=== PATIENT | male | born 1990 | race Caucasian/White ===

== ENCOUNTER 2021-01-29 21:11 | Observation (INO) | payer BC ==
[2021-01-29] MEDS ORDERED: Sodium Chloride 0.9% 10 ML Syringe FLUSH PRN (21:28)
--- NOTE | 2021-01-29 21:28 | EDM.PDOC ---
ED HPI GENERAL MEDICAL PROBLEM - General Chief Complaint: General Stated Complaint: fast heart rate Time Seen by Provider: 01/29/21 21:23 Source of Information: Reports: Patient History Limitations: Reports: No Limitations - History of Present Illness INITIAL COMMENTS - FREE TEXT/NARRATIVE: 30-year-old male who reports beginning on Wednesday or of last week, he developed malaise, nasal congestion, cough and just not feeling well. He sort of "power through it" but he did notice that his heart rate was somewhat elevated in the 110 range and his blood pressure was a at that point. He has been having twinges of pain in his chest that he really didn't describe as a pain but as a slight discomfort that he would rated as 3/10 and it seemed to come and go lasting for no longer than 5 minutes at a time. It didn't radiate and it did not seem to be brought on by anything nor whether any exacerbating or alleviating factors with this. He had no headache. There was no nausea or vomiting. He did feel somewhat short of breath with activity and he felt very fatigued and he noted that his heart rate would increase when he did activity and his blood pressure seemed to increase as well. He continued with the nasal congestion and was seen by the doctors at [facility] on 01/27/2021 and was diagnosed with a sinus infection and was placed on Augmentin for this. He also was advised to take plain Robitussin and he tells me that that is really the only over the counter medication that he has been taking. He has taken no decongestants or [id number] cold type preparations. He reports he has been drinking normally and eating normally. He has been vaccinated against Covid with all 3 shots of the Moderna. He tells me that his heart rate is usually in the 60s to 7 0s but it has consistently been in the 110 range since last week. Today, his blood pressure elevated to the 170 systolic range and that associated with his increased heart rate, his malaise and the vague sort of chest discomfort caused him to come to the emergency department for evaluation. There are no other associated signs or symptoms. There are no other modifying factors. He did have blood work that was done about a month ago that was all normal according the patient area in addition he had his blood pressure medications changed in that he had his losartan changed to Hyzaar 100/25. He does report that he has been taking his medications for his blood pressure and other problems as directed. Onset: Other (6-7 days ago) Duration: Constant (But did seem to worsen today with increased blood pressure.) Location: Reports: Chest Quality: Reports: Other ([place]. 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.) - Related Data Allergies Allergy/AdvReac Type Severity Reaction Status Date / Time No Known Allergies Allergy Verified 01/29/21 21:19 Home Meds: Home Meds Amoxicillin 875 mg PO DAILY 01/29/21 [History] Losartan/Hydrochlorothiazide [Losartan-HCTZ 100-25 MG] 100 mg PO DAILY 01/29/21 [History] amLODIPine [Norvasc] 5 mg PO DAILY 01/29/21 [History] atorvaSTATin Calcium [Lipitor] 40 mg PO DAILY 01/29/21 [History] metFORMIN [Glucophage] 500 mg PO DAILY 01/29/21 [History] Past Medical History Cardiovascular History: Reports: High Cholesterol, Hypertension Endocrine/Metabolic History: Reports: Diabetes, Type II (On metformin. Hemoglobin A1c's have been in the 5.4 range.), Obesity/BMI 30+ - Past Surgical History HEENT Surgical History: Reports: Oral Surgery ([place] teeth extraction) Neurological Surgical History: Reports: C-Spine, Discectomy (Laparoscopic posterior cervical discectomy) Social & Family History - Tobacco Use Tobacco Use Status *Q: Unknown Ever Used Tobacco (Nonsmoker.) - Alcohol Use Alcohol Use History: Yes Alcohol Use Frequency: Socially (Maybe once a month.) - Living Situation & Occupation Occupation: Employed (Works in sales) ED ROS GENERAL - Review of Systems Review Of Systems: See Below Constitutional: Reports: Malaise, Fatigue. Denies: Fever, Chills HEENT: Reports: Other (Nasal congestion.). Denies: Ear Pain, Throat Pain Respiratory: Reports: Cough. Denies: Shortness of Breath Cardiovascular: Reports: Chest Pain (As per history of present illness.), Dyspnea on Exertion, Palpitations Endocrine: Reports: Fatigue GI/Abdominal: Denies: Abdominal Pain, Nausea, Vomiting : Denies: Dysuria, Hematuria Musculoskeletal: Denies: Arm Pain, Back Pain Skin: Reports: Diaphoresis (Sweats off and on.). Denies: Rash Neurological: Denies: Dizziness, Headache Psychiatric: Reports: Anxiety Hematologic/Lymphatic: Denies: Easy Bleeding, Easy Bruising Immunologic: Reports: Other (Patient has had all 3 Moderna Covid vaccinations.) ED EXAM, GENERAL - Physical Exam Exam: See Below Exam Limited By: No Limitations General Appearance: Alert, Mild Distress, Obese, Other (Nontoxic. No respiratory distress.) Eye Exam: Bilateral Eye: EOMI, Normal Inspection (Sclera are anicteric), PERRL Ears: Normal External Exam, Hearing Grossly Normal Ear Exam: Bilateral Ear: Auricle Normal Nose: Normal Inspection, Normal Mucosa, No Blood Throat/Mouth: Normal Inspection, Normal Oropharynx, Normal Voice, No Airway Compromise Head: Atraumatic, Normocephalic Neck: Normal Inspection, Supple, Non-Tender, Full Range of Motion Respiratory/Chest: No Respiratory Distress, Lungs Clear, Normal Breath Sounds, No Accessory Muscle Use, Chest Non-Tender Cardiovascular: Normal Peripheral Pulses, Regular Rate, Rhythm, No Edema, No Murmur Peripheral Pulses: 2+: Radial (L), Radial (R), Dorsalis Pedis (L), Dorsalis Pedis (R) GI/Abdominal: Normal Bowel Sounds, Soft, Non-Tender, No Mass Back Exam: Normal Inspection Extremities: Normal Inspection, Normal Range of Motion, Non-Tender, No Pedal Edema, Normal Capillary Refill Neurological: Alert, Oriented, CN II-XII Intact, Normal Cognition, No Motor/Sensory Deficits Psychiatric: Anxious Skin Exam: Warm, Dry, Intact, Normal Color, No Rash #1 Interpretation EKG Date: 01/29/21 Time: 21:44 Rhythm: Other (Sinus tachycardia) Rate (Beats/Min): 117 [place]: Normal P-Wave: Present QRS: Normal ST-T: Other (Nonspecific T-wave abnormalities.) QT: Normal Comparison: NA - No Prior EKG Course - Vital Signs Last Recorded V/S: Last Vital Signs Temp 36.6 C 01/29/21 21:15 Pulse 93 01/29/21 23:46 Resp 17 01/29/21 23:46 BP 156/95 H 01/29/21 23:55 Pulse Ox 94 L 01/29/21 23:46 - Orders/Labs/Meds Orders: Active Orders 24 hr Category Date Time Status Patient Status Manage Transfer [TRANSFER] Routine ADT 01/30/21 00:02 Active Patient Status [ADT] Routine ADT 01/29/21 23:51 Active Blood Glucose Check, Bedside [RC] QIDACANDBED Care 01/29/21 23:51 Active Cardiac Monitoring [RC] CONTINUOUS Care 01/29/21 23:53 Active Height and Weight [RC] UPON Care 01/29/21 23:51 Active Intake and Output [RC] QSHIFT Care 01/29/21 23:53 Active Oxygen Therapy [RC] PRN Care 01/29/21 23:51 Active Pulse Oximetry [RC] PRN Care 01/29/21 23:53 Active Up ad Sherley [RC] ASDIRECTED Care 01/29/21 23:51 Active VTE/DVT Education [RC] Per Unit Routine Care 01/29/21 23:51 Active Vital Signs [RC] Q4H Care 01/29/21 23:51 Active Heart Healthy Diet [DIET] Diet 01/29/21 Dinner Active Chest 1V Frontal [CR] Stat Exams 01/29/21 21:28 Taken BASIC METABOLIC PANEL,BMP [CHEM] AM Lab 01/30/21 05:11 Ordered CBC WITH AUTO DIFF [HEME] AM Lab 01/30/21 05:11 Ordered TROPONIN I [CHEM] AM Lab 01/30/21 05:11 Ordered Acetaminophen [TylenoL] Med 01/29/21 23:51 Active 975 mg PO Q6H PRN Enoxaparin [Lovenox] Med 01/30/21 00:15 Once 40 mg SUBCUT NOW ONE Enoxaparin [Lovenox] Med 01/30/21 21:00 Active 40 mg SUBCUT Q24H Hydrochlorothiazide/Losartan [Hyzaar 100-12.5 MG] Med 01/30/21 09:00 Pending 1 tab PO DAILY Ondansetron [Zofran] Med 01/29/21 23:51 Active 4 mg IV Q6H PRN Sodium Chloride 0.9% [Normal Saline] 1,000 ml Med 01/29/21 23:45 Active IV ASDIRECTED Sodium Chloride 0.9% [Saline Flush] Med 01/29/21 21:28 Active 10 ml FLUSH ASDIRECTED PRN amLODIPine [Norvasc] Med 01/30/21 09:00 Active 10 mg PO DAILY atorvaSTATin [Lipitor] Med 01/30/21 09:00 Pending 40 mg PO DAILY hydroCHLOROthiazide Med 01/30/21 09:00 Pending 12.5 mg PO DAILY metFORMIN [Glucophage] Med 01/30/21 09:00 Pending 500 mg PO DAILY Peripheral IV Insertion Adult [OM.PC] Routine Oth 01/29/21 21:28 Ordered Resuscitation Status Routine Resus Stat 01/29/21 23:51 Ordered EKG 12 Lead [EK] Routine Ther 01/29/21 21:30 Ordered EKG 12 Lead [EK] Routine Ther 01/30/21 07:00 Ordered Medication Orders Acetaminophen (Acetaminophen 325 Mg Tab) 975 mg PO Q6H PRN PRN Reason: Pain (Mild 1-3)/fever Amlodipine Besylate (Amlodipine 10 Mg Tab) 10 mg PO DAILY [facility] Atorvastatin Calcium (Atorvastatin 40 Mg Tab) 40 mg PO DAILY [facility] Enoxaparin Sodium (Enoxaparin 40 Mg/0.4 Ml Syringe) 40 mg SUBCUT Q24H [facility] Enoxaparin Sodium (Enoxaparin 40 Mg/0.4 Ml Syringe) 40 mg SUBCUT NOW ONE Stop: 01/30/21 00:16 HCTZ/Losartan Potassium (Hydrochlorothiazide/Losartan 12.5-100 Mg Tab) 1 tab PO DAILY [facility] Hydrochlorothiazide (Hydrochlorothiazide 12.5 Mg Cap) 12.5 mg PO DAILY [facility] Sodium Chloride (Normal Saline) 1,000 mls @ 100 mls/hr IV ASDIRECTED GEMMA Metformin HCl (Metformin 500 Mg Tab) 500 mg PO DAILY [facility] Ondansetron HCl (Ondansetron 4 Mg/2 Ml Sdv) 4 mg IV Q6H PRN PRN Reason: Nausea/Vomiting Sodium Chloride (Sodium Chloride 0.9% 10 Ml Syringe) 10 ml FLUSH ASDIRECTED PRN PRN Reason: Keep Vein Open Last Admin: 01/29/21 21:39 Dose: 10 ml Documented by: JAIME Labs: Laboratory Tests 01/29/21 01/29/21 01/29/21 Range/Units 21:35 21:35 21:35 WBC 9.6 (3.2-10.1) x10-3/uL RBC 5.29 (3.90-5.90) x10(6)uL Hgb 15.8 (12.9-17.7) g/dL Hct 45.2 (38.3-50.1) % MCV 85.6 (80.8-98.7) fL MCH 30.0 (27.0-33.3) pg MCHC 35.0 (28.7-35.3) g/dL RDW 12.8 (12.4-15.0) % Plt Count 257 (117-477) x10(3)uL MPV 7.2 (6.7-11.0) fL Neut % (Auto) 77.8 H (40.3-71.8) % Lymph % (Auto) 16.0 (15.8-45.3) % [place] % (Auto) 5.6 (5.5-15.2) % Eos % (Auto) 0.3 (0.1-6.8) % Baso % (Auto) 0.3 (0.3-3.8) % Neut # (Auto) 7.5 H (1.7-6.9) x10-3/uL Lymph # (Auto) 1.5 (0.5-4.5) x10-3/uL [place] # (Auto) 0.5 (0.0-1.2) x10-3/uL Eos # (Auto) 0.0 (0.0-0.6) x10-3/uL Baso # (Auto) 0.0 (0.0-0.3) x10-3/uL D-Dimer, Quantitative (0.0-0.59) mg/LFEU Sodium 136 (135-145) mmol/L Potassium 3.4 L (3.5-5.3) mmol/L Chloride 99 L (100-110) mmol/L Carbon Dioxide 26 (21-32) mmol/L BUN 16 (7-18) mg/dL Creatinine 1.2 (0.70-1.30) mg/dL Est Cr Clr Drug Dosing 85.50 mL/min Estimated GFR (MDRD) > 60 (>60) BUN/Creatinine Ratio 13.3 (9-20) Glucose 211 H (80-116) mg/dL POC Glucose (80-116) mg/dL Calcium 8.5 L (8.6-10.2) mg/dL Magnesium 2.0 (1.8-2.5) mg/dL Total Bilirubin 0.6 (0.1-1.3) mg/dL AST 29 H (5-25) IU/L ALT 97 H (12-36) U/L Alkaline Phosphatase 71 (56-112) IU/L Troponin I 7.4 (4.0-60.3) pg/mL NT-Pro-B Natriuret Pep 5 (<=125) pg/mL Total Protein 7.9 (6.0-8.0) g/dL Albumin 4.3 (3.5-5.2) g/dL Globulin 3.6 g/dL Albumin/Globulin Ratio 1.2 Urine Color (YELLOW) Urine Appearance (CLEAR) Urine pH (5.0-6.5) Ur Specific [place] (1.010-1.025) Urine Protein (NEGATIVE) mg/dL Urine Glucose (UA) (NORMAL) mg/dL Urine Ketones (NEGATIVE) mg/dL Urine Occult Blood (NEGATIVE) Urine Nitrite (NEGATIVE) Urine Bilirubin (NEGATIVE) Urine Urobilinogen (NEGATIVE) mg/dL Ur Leukocyte Esterase (NEGATIVE) Urine RBC (0-5) Urine WBC (0-5) Ur Squamous Epith Cells (NS,R,O) Urine Bacteria (NS) SARS-CoV-2 RNA (YARA) (NEGATIVE) 01/29/21 01/29/21 01/29/21 Range/Units 21:35 21:52 22:04 WBC (3.2-10.1) x10-3/uL RBC (3.90-5.90) x10(6)uL Hgb (12.9-17.7) g/dL Hct (38.3-50.1) % MCV (80.8-98.7) fL MCH (27.0-33.3) pg MCHC (28.7-35.3) g/dL RDW (12.4-15.0) % Plt Count (117-477) x10(3)uL MPV (6.7-11.0) fL Neut % (Auto) (40.3-71.8) % Lymph % (Auto) (15.8-45.3) % [place] % (Auto) (5.5-15.2) % Eos % (Auto) (0.1-6.8) % Baso % (Auto) (0.3-3.8) % Neut # (Auto) (1.7-6.9) x10-3/uL Lymph # (Auto) (0.5-4.5) x10-3/uL [place] # (Auto) (0.0-1.2) x10-3/uL Eos # (Auto) (0.0-0.6) x10-3/uL Baso # (Auto) (0.0-0.3) x10-3/uL D-Dimer, Quantitative < 0.19 (0.0-0.59) mg/LFEU Sodium (135-145) mmol/L Potassium (3.5-5.3) mmol/L Chloride (100-110) mmol/L Carbon Dioxide (21-32) mmol/L BUN (7-18) mg/dL Creatinine (0.70-1.30) mg/dL Est Cr Clr Drug Dosing mL/min Estimated GFR (MDRD) (>60) BUN/Creatinine Ratio (9-20) Glucose (80-116) mg/dL POC Glucose (80-116) mg/dL Calcium (8.6-10.2) mg/dL Magnesium (1.8-2.5) mg/dL Total Bilirubin (0.1-1.3) mg/dL AST (5-25) IU/L ALT (12-36) U/L Alkaline Phosphatase (56-112) IU/L Troponin I (4.0-60.3) pg/mL NT-Pro-B Natriuret Pep (<=125) pg/mL Total Protein (6.0-8.0) g/dL Albumin (3.5-5.2) g/dL Globulin g/dL Albumin/Globulin Ratio Urine Color Yellow (YELLOW) Urine Appearance Clear (CLEAR) Urine pH 6.0 (5.0-6.5) Ur Specific [place] 1.020 (1.010-1.025) Urine Protein Negative (NEGATIVE) mg/dL Urine Glucose (UA) 250 H (NORMAL) mg/dL Urine Ketones Negative (NEGATIVE) mg/dL Urine Occult Blood Trace (NEGATIVE) Urine Nitrite Negative (NEGATIVE) Urine Bilirubin Negative (NEGATIVE) Urine Urobilinogen Normal (NEGATIVE) mg/dL Ur Leukocyte Esterase Negative (NEGATIVE) Urine RBC 0-5 (0-5) Urine WBC 0-5 (0-5) Ur Squamous Epith Cells Occasional (NS,R,O) Urine Bacteria Few H (NS) SARS-CoV-2 RNA (YARA) Negative (NEGATIVE) 01/29/21 Range/Units 22:23 WBC (3.2-10.1) x10-3/uL RBC (3.90-5.90) x10(6)uL Hgb (12.9-17.7) g/dL Hct (38.3-50.1) % MCV (80.8-98.7) fL MCH (27.0-33.3) pg MCHC (28.7-35.3) g/dL RDW (12.4-15.0) % Plt Count (117-477) x10(3)uL MPV (6.7-11.0) fL Neut % (Auto) (40.3-71.8) % Lymph % (Auto) (15.8-45.3) % [place] % (Auto) (5.5-15.2) % Eos % (Auto) (0.1-6.8) % Baso % (Auto) (0.3-3.8) % Neut # (Auto) (1.7-6.9) x10-3/uL Lymph # (Auto) (0.5-4.5) x10-3/uL [place] # (Auto) (0.0-1.2) x10-3/uL Eos # (Auto) (0.0-0.6) x10-3/uL Baso # (Auto) (0.0-0.3) x10-3/uL D-Dimer, Quantitative (0.0-0.59) mg/LFEU Sodium (135-145) mmol/L Potassium (3.5-5.3) mmol/L Chloride (100-110) mmol/L Carbon Dioxide (21-32) mmol/L BUN (7-18) mg/dL Creatinine (0.70-1.30) mg/dL Est Cr Clr Drug Dosing mL/min Estimated GFR (MDRD) (>60) BUN/Creatinine Ratio (9-20) Glucose (80-116) mg/dL POC Glucose 172 H (80-116) mg/dL Calcium (8.6-10.2) mg/dL Magnesium (1.8-2.5) mg/dL Total Bilirubin (0.1-1.3) mg/dL AST (5-25) IU/L ALT (12-36) U/L Alkaline Phosphatase (56-112) IU/L Troponin I (4.0-60.3) pg/mL NT-Pro-B Natriuret Pep (<=125) pg/mL Total Protein (6.0-8.0) g/dL Albumin (3.5-5.2) g/dL Globulin g/dL Albumin/Globulin Ratio Urine Color (YELLOW) Urine Appearance (CLEAR) Urine pH (5.0-6.5) Ur Specific [place] (1.010-1.025) Urine Protein (NEGATIVE) mg/dL Urine Glucose (UA) (NORMAL) mg/dL Urine Ketones (NEGATIVE) mg/dL Urine Occult Blood (NEGATIVE) Urine Nitrite (NEGATIVE) Urine Bilirubin (NEGATIVE) Urine Urobilinogen (NEGATIVE) mg/dL Ur Leukocyte Esterase (NEGATIVE) Urine RBC (0-5) Urine WBC (0-5) Ur Squamous Epith Cells (NS,R,O) Urine Bacteria (NS) SARS-CoV-2 RNA (YARA) (NEGATIVE) Meds: Medications Generic Name Dose Route Start Last Admin Trade Name Freq PRN Reason Stop Dose Admin Acetaminophen 975 mg 01/29/21 23:51 Acetaminophen 325 Mg Tab PO Q6H PRN Pain (Mild 1-3)/fever Amlodipine Besylate 10 mg 01/30/21 09:00 Amlodipine 10 Mg Tab PO DAILY [facility] Atorvastatin Calcium 40 mg 01/30/21 09:00 Atorvastatin 40 Mg Tab PO DAILY [facility] Enoxaparin Sodium 40 mg 01/30/21 21:00 Enoxaparin 40 Mg/0.4 Ml Syringe SUBCUT Q24H [facility] Enoxaparin Sodium 40 mg 01/30/21 00:15 Enoxaparin 40 Mg/0.4 Ml Syringe SUBCUT 01/30/21 00:16 NOW ONE HCTZ/Losartan Potassium 1 tab 01/30/21 09:00 Hydrochlorothiazide/Losartan 12.5-100 Mg Tab PO DAILY [facility] Hydrochlorothiazide 12.5 mg 01/30/21 09:00 Hydrochlorothiazide 12.5 Mg Cap PO DAILY [facility] Sodium Chloride 1,000 mls @ 100 mls/hr 01/29/21 23:45 Normal Saline IV ASDIRECTED [facility] Metformin HCl 500 mg 01/30/21 09:00 Metformin 500 Mg Tab PO DAILY [facility] Ondansetron HCl 4 mg 01/29/21 23:51 Ondansetron 4 Mg/2 Ml Sdv IV Q6H PRN Nausea/Vomiting Sodium Chloride 10 ml 01/29/21 21:28 01/29/21 21:39 Sodium Chloride 0.9% 10 Ml Syringe FLUSH 10 ml ASDIRECTED PRN Administration Keep Vein Open Discontinued Medications Generic Name Dose Route Start Last Admin Trade Name Freq PRN Reason Stop Dose Admin Amlodipine Besylate 5 mg 01/29/21 23:49 01/29/21 23:55 Amlodipine 5 Mg Tab PO 01/29/21 23:50 5 mg ONETIME ONE Administration Sodium Chloride 500 mls @ 999 mls/hr 01/29/21 23:09 01/29/21 23:12 Normal Saline IV 01/29/21 23:39 999 mls/hr .BOLUS ONE Administration Metoprolol Tartrate 5 mg 01/29/21 22:28 01/29/21 22:31 Metoprolol Tartrate 5 Mg/5 Ml Sdv IVPUSH 01/29/21 22:29 5 mg ONETIME ONE Administration - Radiology Interpretation Free Text/Narrative:: Portable chest x-ray showed no acute disease per my read. - Re-Assessments/Exams Free Text/Narrative Re-Assessment/Exam: 01/29/21 22:30: White blood cell count is 9.6. Hemoglobin is 15.8. Platelet count is normal. A d-dimer was normal. Sodium is 136. Potassium is 3.4. Bicarbonate is 26. BUN is 16 and creatinine is 1.2. Glucose is 211. AST and ALT were mildly elevated. Troponin was negative. A proBNP was negative. Magnesium level was normal. A urinalysis had glucose present but was otherwise unremarkable. The patient's blood pressure remains elevated in the 170/110 range. The pulse rate is still in the 110s. His chest x-ray is normal. His EKG shows no definite acute abnormality besides the sinus tachycardia and some borderline T-wave abnormalities. There was no prior EKG for comparison. There was no current of injury or ischemia present. I am unsure of the cause of the patient's tachycardia and his elevated blood pressure. His d-dimer was normal. This pretty much rules out pulmonary embolism. He has a negative troponin and symptoms have been ongoing for days and makes an ischemic problem unlikely. I will treat the patient with metoprolol 5 mg IV and I will also give him normal saline 500 mL bolus. 01/29/21 23:00: The rapid Covid test was negative. The patient's pulse rate has come down to the 80-90 range And the metoprolol. His blood pressure however spiked into the 230/140 range after being still in the 170/100 range after the metoprolol. He is not really having any discomfort. I have discussed all this with the patient and with his parents. I feel that the patient would need admission with treatment of his hypertensive urgency. I feel that Charly need cardiology specially services and with this, the patient would want me to discuss this case initially with the doctors at [facility] [place]. 01/29/21 23:09: I called [facility] and there are no beds available at [facility] [place] and they would not be able to accept the patient in transfer. They will the hospitalist call me back to discuss care the patient on a consulting basis. 01/29/21 23:25: I discussed the patient's case with Dr. Malik, hospitalist at [facility] [place], and she agreed with therapy this far. She recommended that I give the patient metoprolol 5 mg IV. She felt that treating the patient with doses of Lopressor IV as needed would be a good initial option. She felt that the patient could be admitted to our facility but as was stated, there are no beds available at [facility] at this point. 01/29/21 23:40: Patient's blood pressure is down now to 150s over 90s. His pulse rate remains in the 80s to 90s. He has received a 500 mL bolus. He feels improved. I discussed all of the above with the patient and his family and patient would be agreeable to admission to our facility. He is a FULL CODE. I will give the patient amlodipine 5 mg orally now. I have also ordered potassium chloride 40 mg to be given by mouth. I have placed admission orders. Care of the patient will be to Dr. Brennon at 7 AM on 01/30/2021. Departure - Departure Time of Disposition: 23:51 Disposition: Refer to Observation Condition: Good (Stable.) Clinical Impression: Hypertensive urgency, Tachycardia, Diabetes mellitus type 2 in obese Chest pain Qualifiers: Chest pain type: unspecified Qualified Code(s): R07.9 - Chest pain, unspecified - Discharge Information Referrals: Anaya Lucero PA [Primary Care Provider] - Forms: ED Department Discharge Sepsis Event Note (ED) - Evaluation Sepsis Screening Result: No Definite Risk - Focused Exam Vital Signs: Vital Signs Temp Pulse Pulse Resp BP BP Pulse Ox 01/29/21 23:55 156/95 H 01/29/21 23:46 93 17 156/95 H 94 L 01/29/21 23:15 87 12 153/95 H 96 01/29/21 22:55 97 186/117 H 01/29/21 22:39 85 167/105 H 01/29/21 22:31 107 H 199/111 H 01/29/21 22:13 118 H 9 L 178/108 H 98 01/29/21 21:54 115 H 12 175/110 H 97 01/29/21 21:15 36.6 C 123 H 16 224/215 H 97 - My Orders Last 24 Hours: My Active Orders 01/29/21 Dinner Heart Healthy Diet [DIET] 01/29/21 21:28 Chest 1V Frontal [CR] Stat Sodium Chloride 0.9% [Saline Flush] 10 ml FLUSH ASDIRECTED PRN Peripheral IV Insertion Adult [OM.PC] Routine 01/29/21 21:30 EKG 12 Lead [EK] Routine 01/29/21 23:45 Sodium Chloride 0.9% [Normal Saline] 1,000 ml IV ASDIRECTED 01/29/21 23:51 Patient Status [ADT] Routine Blood Glucose Check, Bedside [RC] QIDACANDBED Height and Weight [RC] UPON Oxygen Therapy [RC] PRN Up ad Sherley [RC] ASDIRECTED VTE/DVT Education [RC] Per Unit Routine Vital Signs [RC] Q4H Acetaminophen [TylenoL] 975 mg PO Q6H PRN Ondansetron [Zofran] 4 mg IV Q6H PRN Resuscitation Status Routine 01/29/21 23:53 Cardiac Monitoring [RC] CONTINUOUS Intake and Output [RC] QSHIFT Pulse Oximetry [RC] PRN 01/30/21 00:02 Patient Status Manage Transfer [TRANSFER] Routine 01/30/21 00:15 Enoxaparin [Lovenox] 40 mg SUBCUT NOW ONE 01/30/21 05:11 BASIC METABOLIC PANEL,BMP [CHEM] AM CBC WITH AUTO DIFF [HEME] AM TROPONIN I [CHEM] AM 01/30/21 07:00 EKG 12 Lead [EK] Routine 01/30/21 09:00 Hydrochlorothiazide/Losartan [Hyzaar 100-12.5 MG] 1 tab PO DAILY amLODIPine [Norvasc] 10 mg PO DAILY atorvaSTATin [Lipitor] 40 mg PO DAILY hydroCHLOROthiazide 12.5 mg PO DAILY metFORMIN [Glucophage] 500 mg PO DAILY 01/30/21 21:00 Enoxaparin [Lovenox] 40 mg SUBCUT Q24H - Assessment/Plan Last 24 Hours: My Active Orders 01/29/21 Dinner Heart Healthy Diet [DIET] 01/29/21 21:28 Chest 1V Frontal [CR] Stat Sodium Chloride 0.9% [Saline Flush] 10 ml FLUSH ASDIRECTED PRN Peripheral IV Insertion Adult [OM.PC] Routine 01/29/21 21:30 EKG 12 Lead [EK] Routine 01/29/21 23:45 Sodium Chloride 0.9% [Normal Saline] 1,000 ml IV ASDIRECTED 01/29/21 23:51 Patient Status [ADT] Routine Blood Glucose Check, Bedside [RC] QIDACANDBED Height and Weight [RC] UPON Oxygen Therapy [RC] PRN Up ad Sherley [RC] ASDIRECTED VTE/DVT Education [RC] Per Unit Routine Vital Signs [RC] Q4H Acetaminophen [TylenoL] 975 mg PO Q6H PRN Ondansetron [Zofran] 4 mg IV Q6H PRN Resuscitation Status Routine 01/29/21 23:53 Cardiac Monitoring [RC] CONTINUOUS Intake and Output [RC] QSHIFT Pulse Oximetry [RC] PRN 01/30/21 00:02 Patient Status Manage Transfer [TRANSFER] Routine 01/30/21 00:15 Enoxaparin [Lovenox] 40 mg SUBCUT NOW ONE 01/30/21 05:11 BASIC METABOLIC PANEL,BMP [CHEM] AM CBC WITH AUTO DIFF [HEME] AM TROPONIN I [CHEM] AM 01/30/21 07:00 EKG 12 Lead [EK] Routine 01/30/21 09:00 Hydrochlorothiazide/Losartan [Hyzaar 100-12.5 MG] 1 tab PO DAILY amLODIPine [Norvasc] 10 mg PO DAILY atorvaSTATin [Lipitor] 40 mg PO DAILY hydroCHLOROthiazide 12.5 mg PO DAILY metFORMIN [Glucophage] 500 mg PO DAILY 01/30/21 21:00 Enoxaparin [Lovenox] 40 mg SUBCUT Q24H
[2021-01-29] MEDS ORDERED: Metoprolol Tartrate 5 MG/5 ML SDV IVPUSH ONE (22:28)
[2021-01-29] MEDS ORDERED: Sodium Chloride 0.9% 500 ML IV ONE (23:09)
[2021-01-29] MEDS ORDERED: Sodium Chloride 0.9% 1,000 ML IV SCH (23:45)
[2021-01-29] MEDS ORDERED: amLODIPine 5 MG Tab PO ONE (23:49)
[2021-01-29] MEDS ORDERED: Acetaminophen 325 MG Tab PO PRN (23:51)
[2021-01-29] MEDS ORDERED: Ondansetron 4 MG/2 ML SDV IV PRN (23:51)
[2021-01-30] MEDS ORDERED: Enoxaparin 40 MG/0.4 ML Syringe SUBCUT ONE (00:15)
[2021-01-30] MEDS ORDERED: Potassium Chloride 20 MEQ Packet PO ONE (01:37)
[2021-01-30] MEDS ORDERED: metFORMIN 500 MG Tab PO SCH (08:00)
[2021-01-30] MEDS: Losartan 100 MG Tab PO SCH (08:46)
[2021-01-30] MEDS: Hydrochlorothiazide 25 MG Tab PO SCH (08:46)
[2021-01-30] MEDS: atorvaSTATin 40 MG Tab PO SCH (08:47)
[2021-01-30] MEDS ORDERED: Acetaminophen 500 MG Tab PO PRN (08:47)
[2021-01-30] MEDS: amLODIPine 10 MG Tab PO SCH (08:47)
[2021-01-30] MEDS: Amoxicillin/Clavulanate K 875-125 MG Tab PO SCH ×2 (09:47→21:25)
[2021-01-30] MEDS: Metoprolol Tartrate 25 MG Tab PO SCH ×2 (11:04→21:25)
--- NOTE | 2021-01-30 11:22 | CR ---
CHEST ONE VIEW INDICATION: Elevated blood pressure, palpitations, suspect myocarditis. FINDINGS: An AP upright portable view of the chest 01/29/21 - no comparisons. Overlying EKG leads are noted. The heart is normal in size and shape. Mediastinum is unremarkable. Bony structures are unremarkable. A definite active infiltrate or effusion was not identified. Upper lung field pulmonary vasculature is minimally prominent which may represent a mild degree of pulmonary vascular congestion, etiology indeterminate. Exogenous obesity is suggested. IMPRESSION: Question a mild degree of pulmonary vascular congestion, etiology indeterminate. Question acute myocardial event versus fluid overload versus other etiology such as renal failure. This should be correlated clinically. MTDD
[2021-01-30] MEDS ORDERED: Iopamidol 755 Mg/ML 100 ML Bottle IV ONE (11:49)
--- NOTE | 2021-01-30 12:37 | PCM.HP.2 ---
H&P History of Present Illness - General Date of Service: 01/30/21 Admit Problem/Dx: Admission Diagnosis/Problem Admission Diagnosis/Problem Hypertensive urgency Source of Information: Patient, Provider History Limitations: Reports: No Limitations - History of Present Illness Initial Comments - Free Text/Narative: Robert presented to ER yesterday for hypertensive crisis, chest discomfort, describes as burning sensation, rapid heart rate which was worst yesterday. He states he has had elevated heart rate since Weds/ per his Apple watch, over 100 at rest and close to 160 with activity. He has also had increased fatigue. He had seen his PCP end of Dec for regular check up, all his lab work was normal, A1c was 5. His blood pressure at that visit was 130s/70s. He contacted them on 01/20 as his blood pressure was up over 140s so they added HCTZ 25 mg to his Losartan 100 mg and Amlodipine 5 mg daily. He started having nasal congestion, post nasal drainage when he noticed his heart rate staying up, thought it was just because he was sick. He went into the clinic on 01/27, found to have sinus infection and was started on Augmentin. He has been trying to workout as has upcoming snowmobile trip but more fatigue and heart rate higher than usual. He denies any fevers, chills but having shortness of breath. NO diaphoresis. No nausea, vomiting or diarrhea. No change in urinary symptoms. He had 3rd shot of Moderna vaccine a month ago. Occasionally drinks alcohol but denies tobacco use. History of DM, hypertension. In ER: EKG showed sinus tachycardia rate 123, T wave flattening in inferior leads & V6. No ST-T elevation/depression. Troponin 7.4, 9.7. proBNP 5, & 23. D Dimer <0.19. Covid negative. Chest x-ray showed some pulmonary congestion. Given IVF and Metoprolol 5 mg x 1 in ER, admitted for observation with cardiac monitoring. Dr Aguilar had checked with [facility] last night but did not have any beds but received recommendations from hospitalist last night. Headache Pain Score (Numeric/FACES): 1 - Related Data Allergies/Adverse Reactions: Allergies Allergy/AdvReac Type Severity Reaction Status Date / Time No Known Allergies Allergy Verified 01/29/21 21:19 Home Medications: Home Meds Losartan/Hydrochlorothiazide [Losartan-HCTZ 100-25 MG] 1 tab PO DAILY 01/29/21 [History] amLODIPine [Norvasc] 5 mg PO DAILY 01/29/21 [History] atorvaSTATin Calcium [Lipitor] 40 mg PO DAILY 01/29/21 [History] metFORMIN [Glucophage] 500 mg PO DAILY 01/29/21 [History] Amoxicillin/Potassium Clav [Augmentin 875-125 Tablet] 1 each PO BID 01/30/21 [History] Past Medical History Cardiovascular History: Reports: High Cholesterol, Hypertension Respiratory History: Reports: None Gastrointestinal History: Reports: None Genitourinary History: Reports: None Musculoskeletal History: Reports: None Neurological History: Reports: None Psychiatric History: Reports: None Endocrine/Metabolic History: Reports: Diabetes, Type II, Obesity/BMI 30+ Oncologic (Cancer) History: Reports: None Dermatologic History: Reports: None - Infectious Disease History Infectious Disease History: Reports: None - Past Surgical History HEENT Surgical History: Reports: Oral Surgery Neurological Surgical History: Reports: C-Spine, Discectomy Social & Family History - Family History Family Medical History: Unobtainable - Tobacco Use Tobacco Use Status *Q: Never Tobacco User Second Hand Smoke Exposure: No - Caffeine Use Caffeine Use: Reports: Soda - Alcohol Use Days Per Week of Alcohol Use: 1 Number of Drinks Per Day: 1 Total Drinks Per Week: 1 - Recreational Drug Use Recreational Drug Use: No - Living Situation & Occupation Occupation: Employed (Works in sales) H&P Review of Systems - Review of Systems: Review Of Systems: See Below General: Reports: Weakness, Fatigue. Denies: Fever, Chills HEENT: Reports: Post Nasal Drip, Sinus Congestion Pulmonary: Reports: Shortness of Breath. Denies: Wheezing, Pleuritic Chest Pain Cardiovascular: Reports: Chest Pain, Palpitations, Dyspnea on Exertion. Denies: Edema, Lightheadedness Gastrointestinal: Reports: No Symptoms Genitourinary: Reports: No Symptoms Musculoskeletal: Reports: No Symptoms Skin: Reports: No Symptoms Psychiatric: Reports: No Symptoms Neurological: Reports: No Symptoms Hematologic/Lymphatic: Reports: No Symptoms Immunologic: Reports: No Symptoms Exam - Exam Exam: See Below - Vital Signs Vital Signs: Last Vital Signs Temp 97.1 F 01/30/21 07:55 Pulse 89 01/30/21 11:04 Resp 18 01/30/21 07:55 BP 164/96 H 01/30/21 11:04 Pulse Ox 96 01/30/21 07:55 Weight: 252 lb - Exam General: Alert, Oriented, Cooperative HEENT: PERRLA, EOMI, Hearing Intact, Mucosa Moist & [place]. No: Posterior Pharynx Clear (erythema) Neck: Trachea Midline. No: Lymphadenopathy, JVD Lungs: Clear to Auscultation, Normal Respiratory Effort. No: Decreased Breath Sounds, Crackles, Wheezing Cardiovascular: Tachycardia. No: Systolic Murmur, Rubs, Gallop/S3 GI/Abdominal Exam: Normal Bowel Sounds, Soft, Non-Tender, No Distention (Male) Exam: Deferred Rectal (Males) Exam: Deferred Back Exam: Normal Inspection Extremities: No Pedal Edema, Normal Capillary Refill Peripheral Pulses: 2+: Radial (L), Radial (R), Posterior Tibial (L), Posterior Tibial (R), Dorsalis Pedis (L), Dorsalis Pedis (R) Skin: Warm, Dry, Intact Neurological: Cranial Nerves Intact, Normal Speech, Normal Tone Neuro Extensive - Mental Status: Normal Mood/Affect, Normal Cognition - Patient Data Lab Results Last 24 hrs: Laboratory Results - last 24 hr 01/29/21 01/29/21 01/29/21 Range/Units 21:35 21:35 21:35 WBC 9.6 (3.2-10.1) x10-3/uL RBC 5.29 (3.90-5.90) x10(6)uL Hgb 15.8 (12.9-17.7) g/dL Hct 45.2 (38.3-50.1) % MCV 85.6 (80.8-98.7) fL MCH 30.0 (27.0-33.3) pg MCHC 35.0 (28.7-35.3) g/dL RDW 12.8 (12.4-15.0) % Plt Count 257 (117-477) x10(3)uL MPV 7.2 (6.7-11.0) fL Neut % (Auto) 77.8 H (40.3-71.8) % Lymph % (Auto) 16.0 (15.8-45.3) % Addison % (Auto) 5.6 (5.5-15.2) % Eos % (Auto) 0.3 (0.1-6.8) % Baso % (Auto) 0.3 (0.3-3.8) % Neut # (Auto) 7.5 H (1.7-6.9) x10-3/uL Lymph # (Auto) 1.5 (0.5-4.5) x10-3/uL Addison # (Auto) 0.5 (0.0-1.2) x10-3/uL Eos # (Auto) 0.0 (0.0-0.6) x10-3/uL Baso # (Auto) 0.0 (0.0-0.3) x10-3/uL D-Dimer, Quantitative (0.0-0.59) mg/LFEU Sodium 136 (135-145) mmol/L Potassium 3.4 L (3.5-5.3) mmol/L Chloride 99 L (100-110) mmol/L Carbon Dioxide 26 (21-32) mmol/L BUN 16 (7-18) mg/dL Creatinine 1.2 (0.70-1.30) mg/dL Est Cr Clr Drug Dosing 85.50 mL/min Estimated GFR (MDRD) > 60 (>60) BUN/Creatinine Ratio 13.3 (9-20) Glucose 211 H (80-116) mg/dL POC Glucose (80-116) mg/dL Calcium 8.5 L (8.6-10.2) mg/dL Magnesium 2.0 (1.8-2.5) mg/dL Total Bilirubin 0.6 (0.1-1.3) mg/dL AST 29 H (5-25) IU/L ALT 97 H (12-36) U/L Alkaline Phosphatase 71 (56-112) IU/L Creatine Kinase (60-160) IU/L Troponin I 7.4 (4.0-60.3) pg/mL C-Reactive Protein (0.5-0.9) mg/dL NT-Pro-B Natriuret Pep 5 (<=125) pg/mL Total Protein 7.9 (6.0-8.0) g/dL Albumin 4.3 (3.5-5.2) g/dL Globulin 3.6 g/dL Albumin/Globulin Ratio 1.2 TSH, Ultra Sensitive (0.36-3.74) IU/mL Urine Color (YELLOW) Urine Appearance (CLEAR) Urine pH (5.0-6.5) Ur Specific Crystal (1.010-1.025) Urine Protein (NEGATIVE) mg/dL Urine Glucose (UA) (NORMAL) mg/dL Urine Ketones (NEGATIVE) mg/dL Urine Occult Blood (NEGATIVE) Urine Nitrite (NEGATIVE) Urine Bilirubin (NEGATIVE) Urine Urobilinogen (NEGATIVE) mg/dL Ur Leukocyte Esterase (NEGATIVE) Urine RBC (0-5) Urine WBC (0-5) Ur Squamous Epith Cells (NS,R,O) Urine Bacteria (NS) SARS-CoV-2 RNA (YARA) (NEGATIVE) 01/29/21 01/29/21 01/29/21 Range/Units 21:35 21:52 22:04 WBC (3.2-10.1) x10-3/uL RBC (3.90-5.90) x10(6)uL Hgb (12.9-17.7) g/dL Hct (38.3-50.1) % MCV (80.8-98.7) fL MCH (27.0-33.3) pg MCHC (28.7-35.3) g/dL RDW (12.4-15.0) % Plt Count (117-477) x10(3)uL MPV (6.7-11.0) fL Neut % (Auto) (40.3-71.8) % Lymph % (Auto) (15.8-45.3) % Addison % (Auto) (5.5-15.2) % Eos % (Auto) (0.1-6.8) % Baso % (Auto) (0.3-3.8) % Neut # (Auto) (1.7-6.9) x10-3/uL Lymph # (Auto) (0.5-4.5) x10-3/uL Addison # (Auto) (0.0-1.2) x10-3/uL Eos # (Auto) (0.0-0.6) x10-3/uL Baso # (Auto) (0.0-0.3) x10-3/uL D-Dimer, Quantitative < 0.19 (0.0-0.59) mg/LFEU Sodium (135-145) mmol/L Potassium (3.5-5.3) mmol/L Chloride (100-110) mmol/L Carbon Dioxide (21-32) mmol/L BUN (7-18) mg/dL Creatinine (0.70-1.30) mg/dL Est Cr Clr Drug Dosing mL/min Estimated GFR (MDRD) (>60) BUN/Creatinine Ratio (9-20) Glucose (80-116) mg/dL POC Glucose (80-116) mg/dL Calcium (8.6-10.2) mg/dL Magnesium (1.8-2.5) mg/dL Total Bilirubin (0.1-1.3) mg/dL AST (5-25) IU/L ALT (12-36) U/L Alkaline Phosphatase (56-112) IU/L Creatine Kinase (60-160) IU/L Troponin I (4.0-60.3) pg/mL C-Reactive Protein (0.5-0.9) mg/dL NT-Pro-B Natriuret Pep (<=125) pg/mL Total Protein (6.0-8.0) g/dL Albumin (3.5-5.2) g/dL Globulin g/dL Albumin/Globulin Ratio TSH, Ultra Sensitive (0.36-3.74) IU/mL Urine Color Yellow (YELLOW) Urine Appearance Clear (CLEAR) Urine pH 6.0 (5.0-6.5) Ur Specific Crystal 1.020 (1.010-1.025) Urine Protein Negative (NEGATIVE) mg/dL Urine Glucose (UA) 250 H (NORMAL) mg/dL Urine Ketones Negative (NEGATIVE) mg/dL Urine Occult Blood Trace (NEGATIVE) Urine Nitrite Negative (NEGATIVE) Urine Bilirubin Negative (NEGATIVE) Urine Urobilinogen Normal (NEGATIVE) mg/dL Ur Leukocyte Esterase Negative (NEGATIVE) Urine RBC 0-5 (0-5) Urine WBC 0-5 (0-5) Ur Squamous Epith Cells Occasional (NS,R,O) Urine Bacteria Few H (NS) SARS-CoV-2 RNA (YARA) Negative (NEGATIVE) 01/29/21 01/30/21 01/30/21 Range/Units 22:23 06:10 06:10 WBC 6.4 (3.2-10.1) x10-3/uL RBC 4.96 (3.90-5.90) x10(6)uL Hgb 14.8 (12.9-17.7) g/dL Hct 42.8 (38.3-50.1) % MCV 86.3 (80.8-98.7) fL MCH 29.9 (27.0-33.3) pg MCHC 34.6 (28.7-35.3) g/dL RDW 12.9 (12.4-15.0) % Plt Count 231 (117-477) x10(3)uL MPV 7.2 (6.7-11.0) fL Neut % (Auto) 66.1 (40.3-71.8) % Lymph % (Auto) 24.9 (15.8-45.3) % Addison % (Auto) 7.9 (5.5-15.2) % Eos % (Auto) 0.8 (0.1-6.8) % Baso % (Auto) 0.3 (0.3-3.8) % Neut # (Auto) 4.2 (1.7-6.9) x10-3/uL Lymph # (Auto) 1.6 (0.5-4.5) x10-3/uL Addison # (Auto) 0.5 (0.0-1.2) x10-3/uL Eos # (Auto) 0.1 (0.0-0.6) x10-3/uL Baso # (Auto) 0.0 (0.0-0.3) x10-3/uL D-Dimer, Quantitative (0.0-0.59) mg/LFEU Sodium 140 (135-145) mmol/L Potassium 4.0 (3.5-5.3) mmol/L Chloride 106 D (100-110) mmol/L Carbon Dioxide 26 (21-32) mmol/L BUN 14 (7-18) mg/dL Creatinine 1.0 (0.70-1.30) mg/dL Est Cr Clr Drug Dosing 102.60 mL/min Estimated GFR (MDRD) > 60 (>60) BUN/Creatinine Ratio 14.0 (9-20) Glucose 101 D (80-116) mg/dL POC Glucose 172 H (80-116) mg/dL Calcium 8.3 L (8.6-10.2) mg/dL Magnesium (1.8-2.5) mg/dL Total Bilirubin (0.1-1.3) mg/dL AST (5-25) IU/L ALT (12-36) U/L Alkaline Phosphatase (56-112) IU/L Creatine Kinase (60-160) IU/L Troponin I (4.0-60.3) pg/mL C-Reactive Protein (0.5-0.9) mg/dL NT-Pro-B Natriuret Pep (<=125) pg/mL Total Protein (6.0-8.0) g/dL Albumin (3.5-5.2) g/dL Globulin g/dL Albumin/Globulin Ratio TSH, Ultra Sensitive (0.36-3.74) IU/mL Urine Color (YELLOW) Urine Appearance (CLEAR) Urine pH (5.0-6.5) Ur Specific Crystal (1.010-1.025) Urine Protein (NEGATIVE) mg/dL Urine Glucose (UA) (NORMAL) mg/dL Urine Ketones (NEGATIVE) mg/dL Urine Occult Blood (NEGATIVE) Urine Nitrite (NEGATIVE) Urine Bilirubin (NEGATIVE) Urine Urobilinogen (NEGATIVE) mg/dL Ur Leukocyte Esterase (NEGATIVE) Urine RBC (0-5) Urine WBC (0-5) Ur Squamous Epith Cells (NS,R,O) Urine Bacteria (NS) SARS-CoV-2 RNA (YARA) (NEGATIVE) 01/30/21 01/30/21 01/30/21 Range/Units 06:10 06:10 06:10 WBC (3.2-10.1) x10-3/uL RBC (3.90-5.90) x10(6)uL Hgb (12.9-17.7) g/dL Hct (38.3-50.1) % MCV (80.8-98.7) fL MCH (27.0-33.3) pg MCHC (28.7-35.3) g/dL RDW (12.4-15.0) % Plt Count (117-477) x10(3)uL MPV (6.7-11.0) fL Neut % (Auto) (40.3-71.8) % Lymph % (Auto) (15.8-45.3) % Addison % (Auto) (5.5-15.2) % Eos % (Auto) (0.1-6.8) % Baso % (Auto) (0.3-3.8) % Neut # (Auto) (1.7-6.9) x10-3/uL Lymph # (Auto) (0.5-4.5) x10-3/uL Addison # (Auto) (0.0-1.2) x10-3/uL Eos # (Auto) (0.0-0.6) x10-3/uL Baso # (Auto) (0.0-0.3) x10-3/uL D-Dimer, Quantitative (0.0-0.59) mg/LFEU Sodium (135-145) mmol/L Potassium (3.5-5.3) mmol/L Chloride (100-110) mmol/L Carbon Dioxide (21-32) mmol/L BUN (7-18) mg/dL Creatinine (0.70-1.30) mg/dL Est Cr Clr Drug Dosing mL/min Estimated GFR (MDRD) (>60) BUN/Creatinine Ratio (9-20) Glucose (80-116) mg/dL POC Glucose (80-116) mg/dL Calcium (8.6-10.2) mg/dL Magnesium (1.8-2.5) mg/dL Total Bilirubin (0.1-1.3) mg/dL AST (5-25) IU/L ALT (12-36) U/L Alkaline Phosphatase (56-112) IU/L Creatine Kinase 134 (60-160) IU/L Troponin I 9.7 (4.0-60.3) pg/mL C-Reactive Protein (0.5-0.9) mg/dL NT-Pro-B Natriuret Pep (<=125) pg/mL Total Protein (6.0-8.0) g/dL Albumin (3.5-5.2) g/dL Globulin g/dL Albumin/Globulin Ratio TSH, Ultra Sensitive 2.64 (0.36-3.74) IU/mL Urine Color (YELLOW) Urine Appearance (CLEAR) Urine pH (5.0-6.5) Ur Specific Crystal (1.010-1.025) Urine Protein (NEGATIVE) mg/dL Urine Glucose (UA) (NORMAL) mg/dL Urine Ketones (NEGATIVE) mg/dL Urine Occult Blood (NEGATIVE) Urine Nitrite (NEGATIVE) Urine Bilirubin (NEGATIVE) Urine Urobilinogen (NEGATIVE) mg/dL Ur Leukocyte Esterase (NEGATIVE) Urine RBC (0-5) Urine WBC (0-5) Ur Squamous Epith Cells (NS,R,O) Urine Bacteria (NS) SARS-CoV-2 RNA (YARA) (NEGATIVE) 01/30/21 01/30/21 Range/Units 06:10 06:10 WBC (3.2-10.1) x10-3/uL RBC (3.90-5.90) x10(6)uL Hgb (12.9-17.7) g/dL Hct (38.3-50.1) % MCV (80.8-98.7) fL MCH (27.0-33.3) pg MCHC (28.7-35.3) g/dL RDW (12.4-15.0) % Plt Count (117-477) x10(3)uL MPV (6.7-11.0) fL Neut % (Auto) (40.3-71.8) % Lymph % (Auto) (15.8-45.3) % [place]ison % (Auto) (5.5-15.2) % Eos % (Auto) (0.1-6.8) % Baso % (Auto) (0.3-3.8) % Neut # (Auto) (1.7-6.9) x10-3/uL Lymph # (Auto) (0.5-4.5) x10-3/uL Addison # (Auto) (0.0-1.2) x10-3/uL Eos # (Auto) (0.0-0.6) x10-3/uL Baso # (Auto) (0.0-0.3) x10-3/uL D-Dimer, Quantitative (0.0-0.59) mg/LFEU Sodium (135-145) mmol/L Potassium (3.5-5.3) mmol/L Chloride (100-110) mmol/L Carbon Dioxide (21-32) mmol/L BUN (7-18) mg/dL Creatinine (0.70-1.30) mg/dL Est Cr Clr Drug Dosing mL/min Estimated GFR (MDRD) (>60) BUN/Creatinine Ratio (9-20) Glucose (80-116) mg/dL POC Glucose (80-116) mg/dL Calcium (8.6-10.2) mg/dL Magnesium (1.8-2.5) mg/dL Total Bilirubin (0.1-1.3) mg/dL AST (5-25) IU/L ALT (12-36) U/L Alkaline Phosphatase (56-112) IU/L Creatine Kinase (60-160) IU/L Troponin I (4.0-60.3) pg/mL C-Reactive Protein < 0.2 L (0.5-0.9) mg/dL NT-Pro-B Natriuret Pep 23 (<=125) pg/mL Total Protein (6.0-8.0) g/dL Albumin (3.5-5.2) g/dL Globulin g/dL Albumin/Globulin Ratio TSH, Ultra Sensitive (0.36-3.74) IU/mL Urine Color (YELLOW) Urine Appearance (CLEAR) Urine pH (5.0-6.5) Ur Specific Crystal (1.010-1.025) Urine Protein (NEGATIVE) mg/dL Urine Glucose (UA) (NORMAL) mg/dL Urine Ketones (NEGATIVE) mg/dL Urine Occult Blood (NEGATIVE) Urine Nitrite (NEGATIVE) Urine Bilirubin (NEGATIVE) Urine Urobilinogen (NEGATIVE) mg/dL Ur Leukocyte Esterase (NEGATIVE) Urine RBC (0-5) Urine WBC (0-5) Ur Squamous Epith Cells (NS,R,O) Urine Bacteria (NS) SARS-CoV-2 RNA (YARA) (NEGATIVE) Result Diagrams: 01/30/21 06:10 01/30/21 06:10 Sepsis Event Note - Evaluation Sepsis Screening Result: No Definite Risk - Focused Exam Vital Signs: Vital Signs Temp Pulse Pulse Resp BP BP BP 01/30/21 11:04 89 164/96 H 01/30/21 08:47 153/88 H 01/30/21 08:46 153/88 H 01/30/21 07:55 97.1 F 85 18 153/88 H 01/30/21 06:00 76 16 133/87 01/30/21 02:00 98 F 93 16 162/92 H 01/30/21 00:21 84 16 162/84 H Pulse Ox 01/30/21 11:04 01/30/21 08:47 01/30/21 08:46 01/30/21 07:55 96 01/30/21 06:00 95 01/30/21 02:00 97 01/30/21 00:21 96 *Q Meaningful Use (ADM) - VTE Risk Assess *Q Each Risk Factor Represents 1 Point: Obesity ( BMI > 25 kg/m2) Total Score 1 Point Risk Factors: 1 Each Risk Factor Represents 2 Points: None Total Score 2 Point Risk Factors: 0 Each Risk Factor Represents 3 Points: None Total Score 3 Point Risk Factors: 0 Each Risk Factor Represents 5 Points: None Total Score 5 Point Risk Factors: 0 Venous Thromboembolism Risk Factor Score *Q: 1 - Problem List (1) Dyspnea SNOMED Code(s): 568061846 ICD Code: R06.00 - DYSPNEA, UNSPECIFIED Status: Acute Current Visit: Yes (2) Tachycardia SNOMED Code(s): 6524966 ICD Code: R00.0 - TACHYCARDIA, UNSPECIFIED Status: Acute Current Visit: Yes (3) Chest pain SNOMED Code(s): 18610079 ICD Code: R07.9 - CHEST PAIN, UNSPECIFIED Status: Acute Current Visit: Yes Qualifiers: Chest pain type: unspecified Qualified Code(s): R07.9 - Chest pain, unspecified (4) Hypertensive urgency SNOMED Code(s): 154167350 ICD Code: I16.0 - HYPERTENSIVE URGENCY Status: Acute Current Visit: Yes (5) Myocarditis SNOMED Code(s): 13330791 ICD Code: I51.4 - MYOCARDITIS, UNSPECIFIED Status: Suspected Current Visit: Yes Qualifiers: Myocarditis type: unspecified Chronicity: acute Qualified Code(s): I40.9 - Acute myocarditis, unspecified (6) Diabetes mellitus type 2 in obese SNOMED Code(s): 42190602 ICD Code: E11.69 - TYPE 2 DIABETES MELLITUS WITH OTHER SPECIFIED COMPLICATION; E66.9 - OBESITY, UNSPECIFIED Status: Chronic Current Visit: Yes (7) Hypertension SNOMED Code(s): 20588343 ICD Code: I10 - ESSENTIAL (PRIMARY) HYPERTENSION Status: Chronic Current Visit: Yes Problem List Initiated/Reviewed/Updated: Yes Orders Last 24hrs: Active Orders 24 hr Category Date Time Status Patient Status [ADT] Routine ADT 12/15/21 23:51 Active Blood Glucose Check, Bedside [RC] QIDACANDBED Care 01/29/21 23:51 Active Cardiac Monitoring [RC] CONTINUOUS Care 01/29/21 23:53 Active Oxygen Therapy [RC] PRN Care 01/29/21 23:51 Active Pulse Oximetry [RC] PRN Care 01/29/21 23:53 Active Up ad Sherley [RC] ASDIRECTED Care 01/29/21 23:51 Active VTE/DVT Education [RC] Per Unit Routine Care 01/29/21 23:51 Active Vital Signs [RC] Q4H Care 01/29/21 23:51 Active Heart Healthy Diet [DIET] Diet 01/29/21 Dinner Active Ang Chest [CT] Routine Exams 01/30/21 10:28 Ordered Echo Comp wo Cont [US] Routine Exams 01/31/21 08:00 Ordered Acetaminophen [Tylenol Extra Strength] Med 01/30/21 08:47 Active 1,000 mg PO Q8H PRN Amoxicillin/Clavulanate K [Augmentin 875 MG/125 MG] Med 01/30/21 09:00 Active 1 tab PO BID Enoxaparin [Lovenox] Med 01/30/21 21:00 Active 40 mg SUBCUT Q24H Losartan [Cozaar] Med 01/30/21 09:00 Active 100 mg PO DAILY Metoprolol Succinate [Toprol XL] Med 01/31/21 09:00 Active 25 mg PO DAILY Metoprolol Tartrate [Lopressor] Med 01/30/21 10:30 Active 12.5 mg PO BID Ondansetron [Zofran] Med 01/29/21 23:51 Active 4 mg IV Q6H PRN Sodium Chloride 0.9% [Saline Flush] Med 01/29/21 21:28 Active 10 ml FLUSH ASDIRECTED PRN amLODIPine [Norvasc] Med 01/30/21 09:00 Active 10 mg PO DAILY atorvaSTATin [Lipitor] Med 01/30/21 09:00 Active 40 mg PO DAILY hydroCHLOROthiazide Med 01/30/21 09:00 Active 25 mg PO DAILY metFORMIN [Glucophage] Med 01/30/21 08:00 Hold 500 mg PO WITHBREAKFAST Convert IV to Peripheral Lock [Convert IV to Saline Oth 01/30/21 09:56 Ordered Lock] [OM.PC] Routine Peripheral IV Insertion Adult [OM.PC] Routine Oth 01/29/21 21:28 Ordered Resuscitation Status Routine Resus Stat 01/29/21 23:51 Ordered EKG 12 Lead [EK] Routine Ther 01/29/21 21:30 Stop Req EKG 12 Lead [EK] Routine Ther 01/30/21 07:00 Ordered Medication Orders Acetaminophen (Acetaminophen 500 Mg Tab) 1,000 mg PO Q8H PRN PRN Reason: PAIN/FEVER Amlodipine Besylate (Amlodipine 10 Mg Tab) 10 mg PO DAILY [facility] Last Admin: 01/30/21 08:47 Dose: 10 mg Documented by: MOISES Amoxicillin/Clavulanate Potassium (Amoxicillin/Clavulanate K 875-125 Mg Tab) 1 tab PO BID [facility] Last Admin: 01/30/21 09:47 Dose: 1 tab Documented by: MOISES Atorvastatin Calcium (Atorvastatin 40 Mg Tab) 40 mg PO DAILY [facility] Last Admin: 01/30/21 08:47 Dose: 40 mg Documented by: MOISES Enoxaparin Sodium (Enoxaparin 40 Mg/0.4 Ml Syringe) 40 mg SUBCUT Q24H [facility] Hydrochlorothiazide (Hydrochlorothiazide 25 Mg Tab) 25 mg PO DAILY [facility] Last Admin: 01/30/21 08:46 Dose: 25 mg Documented by: MOISES Losartan Potassium (Losartan 100 Mg Tab) 100 mg PO DAILY [facility] Last Admin: 01/30/21 08:46 Dose: 100 mg Documented by: MOISES Metformin HCl (Metformin 500 Mg Tab) 500 mg PO WITHBREAKFAST [facility] Last Admin: 01/30/21 08:45 Dose: 500 mg Documented by: MOISES Metoprolol Succinate (Metoprolol Succinate 25 Mg Tab.Er) 25 mg PO DAILY [facility] Metoprolol Tartrate (Metoprolol Tartrate 25 Mg Tab) 12.5 mg PO BID [facility] Stop: 01/30/21 21:01 Last Admin: 01/30/21 11:04 Dose: 12.5 mg Documented by: MOISES Ondansetron HCl (Ondansetron 4 Mg/2 Ml Sdv) 4 mg IV Q6H PRN PRN Reason: Nausea/Vomiting Sodium Chloride (Sodium Chloride 0.9% 10 Ml Syringe) 10 ml FLUSH ASDIRECTED PRN PRN Reason: Keep Vein Open Last Admin: 01/29/21 21:39 Dose: 10 ml Documented by: JAIME Assessment/Plan Comment:: 1. Admit for observation for hypertensive crisis, tachycardia, chest pain, dysp nikki. 2. Dyspnea/Tachycardia/Chest pain: Troponin 7.4, 9.7, CK 134. proBNP today 23. TSH 2.64. CRP <0.2. Covid negative. 3rd Moderna vaccination 1 month ago. CXR showed some pulmonary congestion unknown etiology. No cardiomegaly. Received Metoprolol 5 mg IV x 1 in ER. Amlodipine increased to 10 mg daily. Suspect myocarditis: spoke with Dr Gutierrez, [facility], wanted to rule out PE even with normal D Dimer. CTA chest was ordered and negative for PE. Also recommended echocardiogram for tomorrow and start low dose Metoprolol. He inquired about bed availability with [facility] which they are only taking STEMI, strokes & traumas currently, no other beds available. He recommended getting above tests and started Metoprolol and follow up with Cardiology at discharge. Most likely viral, possible side effect from vaccine given age and male. 3. Myocarditis, suspected: Metoprolol 12. 5 mg IR po bid today and then switch to 25 mg XL daily. Depending on blood pressure response may need to decrease Amlodipine or discontinue HCTZ if needed. Echo tomorrow, will be read by [facility]. 4. Hypertensive crisis: came down to 130s but then back up 160s. Losartan 100 mg, HCTZ 25 mg, Amlodipine 10 mg and adding Metoprolol as above. 5. DM: Hold Metformin for 48 hours after CTA. Diabetic/heart healthy diet. Blood glucose bid. Humalog sliding scale as needed. 6. Diet: Heart healthy/Consistent carbs. 7. Activity: up with assistance. 8. DVT prophylaxis: Lovenox 40 mg sq daily. 9. Disposition: 24-48 hours of cardiac monitoring, adjustment of medications, & echocardiogram. Anticipate discharge Wednesday/Wednesday dependent on response to medications. - Mortality Measure Prognosis:: Good
--- NOTE | 2021-01-30 13:15 | CT ---
INDICATION: Short of breath, chest pain, question myocarditis. COMPUTERIZED TOMOGRAPHY ANGIOGRAPHY OF THE CHEST WITH CONTRAST: Spiral 1.25 mm axial sections were obtained through the chest with 85 mL Isovue-370. The injector was set for 4 mL/second, but malfunctioned, producing less than ideal concentration of contrast within the pulmonary arteries. The study was felt to be fairly diagnostic, however. FINDINGS: A definite active infiltrate or effusion or nodular mass was not identified. The aorta and major vessels appear to be intact without evidence of pulmonary emboli identified. No mediastinal mass was identified. The heart did not appear grossly enlarged. No pericardial effusion was seen. No significant-appearing mediastinal lymphadenopathy was noted. An azygos lobe is noted. The upper abdomen included on the study appeared unremarkable. IMPRESSION: 1. No evidence of PE with fairly normal appearance of the chest. 2. Azygos lobe noted incidentally. The report was called to Dr. Willett at 1243 hours. [facility]
[2021-01-30] MEDS ORDERED: Enoxaparin 40 MG/0.4 ML Syringe SUBCUT SCH (21:00)
[2021-01-31] MEDS ORDERED: Metoprolol Succinate 25 MG Tab.ER PO SCH (09:00)
[2021-01-31] MEDS: Losartan 100 MG Tab PO SCH (09:23)
[2021-01-31] MEDS: Hydrochlorothiazide 25 MG Tab PO SCH (09:23)
[2021-01-31] MEDS: Amoxicillin/Clavulanate K 875-125 MG Tab PO SCH (09:23)
[2021-01-31] MEDS: atorvaSTATin 40 MG Tab PO SCH (09:23)
[2021-01-31] MEDS: amLODIPine 10 MG Tab PO SCH (09:24)
--- NOTE | 2021-01-31 14:45 | PCM.DCSUM1 ---
Discharge Summary - Hospital Course HPI Initial Comments: Robert presented to ER yesterday for hypertensive crisis, chest discomfort, describes as burning sensation, rapid heart rate which was worst yesterday. He states he has had elevated heart rate since / per his Apple watch, over 100 at rest and close to 160 with activity. He has also had increased fatigue. He had seen his PCP end of Dec for regular check up, all his lab work was normal, A1c was 5. His blood pressure at that visit was 130s/70s. He contacted them on 01/20 as his blood pressure was up over 140s so they added HCTZ 25 mg to his Losartan 100 mg and Amlodipine 5 mg daily. He started having nasal congestion, post nasal drainage when he noticed his heart rate staying up, thought it was just because he was sick. He went into the clinic on 01/27, found to have sinus infection and was started on Augmentin. He has been trying to workout as has upcoming snowmobile trip but more fatigue and heart rate higher than usual. He denies any fevers, chills but having shortness of breath. NO diaphoresis. No nausea, vomiting or diarrhea. No change in urinary symptoms. He had 3rd shot of Moderna vaccine a month ago. Occasionally drinks alcohol but denies tobacco use. History of DM, hypertension. Family history of CAD. He had dental crown placed on 01/07. In ER: EKG showed sinus tachycardia rate 123, T wave flattening in inferior leads & V6. No ST-T elevation/depression. Troponin 7.4, 9.7. proBNP 5, & 23. D Dimer <0.19. Covid negative. Chest x-ray showed some pulmonary congestion. Given IVF and Metoprolol 5 mg x 1 in ER, admitted for observation with cardiac monitoring. Dr Aguilar had checked with [facility] last night but did not h ave any beds but received recommendations from hospitalist last night. Headache Diagnosis: Stroke: No - Discharge Data Discharge Date: 01/31/21 Discharge Disposition: Home, Self-Care 01 Condition: Good - Referral to Home Health Primary Care Physician: HERNESTO Kelly - Discharge Diagnosis/Problem(s) (1) Myocarditis SNOMED Code(s): 93195950 ICD Code: I51.4 - MYOCARDITIS, UNSPECIFIED Status: Suspected Qualifiers: Myocarditis type: unspecified Chronicity: acute Qualified Code(s): I40.9 - Acute myocarditis, unspecified (2) Dyspnea SNOMED Code(s): 417834302 ICD Code: R06.00 - DYSPNEA, UNSPECIFIED Status: Resolved (3) Tachycardia SNOMED Code(s): 7782395 ICD Code: R00.0 - TACHYCARDIA, UNSPECIFIED Status: Resolved (4) Chest pain SNOMED Code(s): 51116331 ICD Code: R07.9 - CHEST PAIN, UNSPECIFIED Status: Acute Problem Details: improved Qualifiers: Chest pain type: unspecified Qualified Code(s): R07.9 - Chest pain, unspecified (5) Hypertensive urgency SNOMED Code(s): 972959208 ICD Code: I16.0 - HYPERTENSIVE URGENCY Status: Resolved (6) Diabetes mellitus type 2 in obese SNOMED Code(s): 96232898 ICD Code: E11.69 - TYPE 2 DIABETES MELLITUS WITH OTHER SPECIFIED COMPLICATION; E66.9 - OBESITY, UNSPECIFIED Status: Chronic (7) Hypertension SNOMED Code(s): 42757123 ICD Code: I10 - ESSENTIAL (PRIMARY) HYPERTENSION Status: Chronic - Patient Summary/Data Hospital Course: Robert presented with chest pain described as burning sensation, troponin was 7.4 and 9.7. EKG findings showed sinus tachycardia with T wave flattening in inferior & lateral leads, D Dimer was <0.19. CK was 134. proBNP was 5, repeat 23. Potassium was initially 3.4, corrected to 4.0. Magnesium 2.0. TSH 2.64. Urine glucose 250 otherwise normal. WBC was 9.6, repeat 6.4. Covid was negative. CXR showed pulmonary congestion but no cardiomegaly. Due to acute chest pain, sudden onset dyspnea at rest & with exercise, fatigue and EKG Sinus tachycardia with T wave changes, suspected myocarditis possibly from recent respiratory illness. Spoke with Dr Gutierrez at [facility], he agreed that was suspicious for myocarditis, reviewed imaging, EKG and labs and he recommended getting CTA to rule out pulmonary embolism even with normal D Dimer, this came back negative, no pericardial effusion. Also recommended echocardiogram, preliminary report stated no signs of myocarditis. Even with presumptive negative echo based on 2013 ESC criteria for clinically suspected myocarditis which requires at least one clinical presentation and at least one diagnostic criteria: He had 3 clinical findings: chest pain, new onset of dyspnea at rest & with exercise & fatigue, palpitations and 1 diagnostic criteria of EKG changes: sinus tachycardia with T wave flattening. Dr Gutierrez also had recommended starting metoprolol and adjusting for blood pressure and rate control. Metoprolol 12.5 mg IR bid was started on 01/30, his rate & blood pressure improved was in 150s-160s/80-90s with HR 80s-90s. 01/31 switched to Metoprolol XL 25 mg daily, his blood pressures were 140/80s, last check was 129/83, HR 60- 70s. He received 1 dose of Metoprolol 5 mg IV on night of admission, dose of Amlodipine was increased to 10 mg daily next morning. He has tolerated Losartan 100 mg, HCTZ 25 mg, Amlodipine 10 mg and Metoprolol XL 25 mg daily, he may need to be taken off HCTZ if blood pressures get too low or if he starts getting bradycardiac then can be weaned off Metoprolol. Metformin was held for 48 hours since received contrast dye on 01/30 so will resume on Friday 02/02. Cr 1.0. Since adding Metoprolol, chest pain improved, had occasional twinges and still some fatigue, dyspnea with exertion, may need referral to Cardiology if chest pain/dyspnea do not improve. Discharged in stable condition home. Will follow up with Anaya Lucero on Sunday 02/04 for recheck of blood pressure and symptoms. - Patient Instructions Diet: Usual Diet as Tolerated Activity: As Tolerated Driving: Do Not Drive Showering/Bathing: May Shower Notify Provider of: Increased Pain, Nausea and/or Vomiting Other/Special Instructions: Follow up with Anaya Lucero on 02/04 as previously scheduled for recheck blood pressure, heart rate and possible referral to cardiology. - Discharge Plan *PRESCRIPTION DRUG MONITORING PROGRAM REVIEWED*: Not Applicable *COPY OF PRESCRIPTION DRUG MONITORING REPORT IN PATIENT DANIELLE: Not Applicable Prescriptions/Med Rec: amLODIPine [Norvasc] 10 mg PO DAILY #14 tab Metoprolol Succinate [Toprol XL] 25 mg PO DAILY #14 tab.er Home Medications: Home Meds Losartan/Hydrochlorothiazide [Losartan-HCTZ 100-25 MG] 1 tab PO DAILY 01/29/21 [History] atorvaSTATin Calcium [Lipitor] 40 mg PO DAILY 01/29/21 [History] Amoxicillin/Potassium Clav [Augmentin 875-125 Tablet] 1 each PO BID 01/30/21 [History] Acetaminophen [Tylenol Extra Strength] 1,000 mg PO Q8H PRN tablet 01/31/21 [Rx] Metoprolol Succinate [Toprol XL] 25 mg PO DAILY #14 tab.er 01/31/21 [Rx] amLODIPine [Norvasc] 10 mg PO DAILY #14 tab 01/31/21 [Rx] metFORMIN [Glucophage] 500 mg PO DAILY #10 tab 01/31/21 [Rx] Oxygen Therapy Mode: Room Air Patient Handouts: Deep Vein Thrombosis, Hypertension, Adult Forms: ED Department Discharge Referrals: Anaya Lucero PA [Primary Care Provider] - - Discharge Summary/Plan Comment DC Time >30 min.: No Total # of Minutes for Discharge Time: 20 min - General Info Date of Service: 01/31/21 Subjective Update: Robert states burning sensation is gone but occasional twinges in left chest. Feeling better. Shortness of breath improved, feels fatigued with getting up to the bathroom. - Patient Data Vitals - Most Recent: Last Vital Signs Temp 97 F 01/31/21 12:35 Pulse 73 01/31/21 12:35 Resp 18 01/31/21 12:35 BP 129/83 01/31/21 12:35 Pulse Ox 96 01/31/21 12:35 Weight - Most Recent: 252 lb Med Orders - Current: Current Medications Discontinued Medications Acetaminophen (Acetaminophen 325 Mg Tab) 975 mg PO Q6H PRN PRN Reason: Pain (Mild 1-3)/fever Acetaminophen (Acetaminophen 500 Mg Tab) 1,000 mg PO Q8H PRN PRN Reason: PAIN/FEVER Amlodipine Besylate (Amlodipine 5 Mg Tab) 5 mg PO ONETIME ONE Stop: 01/29/21 23:50 Last Admin: 01/29/21 23:55 Dose: 5 mg Documented by: Amlodipine Besylate (Amlodipine 10 Mg Tab) 10 mg PO DAILY [facility] Last Admin: 01/31/21 09:24 Dose: 10 mg Documented by: Amoxicillin/Clavulanate Potassium (Amoxicillin/Clavulanate K 875-125 Mg Tab) 1 tab PO BID [facility] Last Admin: 01/31/21 09:23 Dose: 1 tab Documented by: Atorvastatin Calcium (Atorvastatin 40 Mg Tab) 40 mg PO DAILY [facility] Last Admin: 01/31/21 09:23 Dose: 40 mg Documented by: Enoxaparin Sodium (Enoxaparin 40 Mg/0.4 Ml Syringe) 40 mg SUBCUT Q24H [facility] Last Admin: 01/30/21 21:26 Dose: 40 mg Documented by: Enoxaparin Sodium (Enoxaparin 40 Mg/0.4 Ml Syringe) 40 mg SUBCUT NOW ONE Stop: 01/30/21 00:16 Last Admin: 01/30/21 00:38 Dose: 40 mg Documented by: Hydrochlorothiazide (Hydrochlorothiazide 25 Mg Tab) 25 mg PO DAILY [facility] Last Admin: 01/31/21 09:23 Dose: 25 mg Documented by: Sodium Chloride (Normal Saline) 500 mls @ 999 mls/hr IV .BOLUS ONE Stop: 01/29/21 23:39 Last Admin: 01/29/21 23:12 Dose: 999 mls/hr Documented by: Sodium Chloride (Normal Saline) 1,000 mls @ 100 mls/hr IV ASDIRECTED [facility] Last Admin: 01/30/21 00:39 Dose: 100 mls/hr Documented by: Iopamidol (Iopamidol 755 Mg/Ml 100 Ml Bottle) 85 ml IV . DIRECTED ONE Stop: 01/30/21 11:50 Last Admin: 01/30/21 12:28 Dose: 85 ml Documented by: Losartan Potassium (Losartan 100 Mg Tab) 100 mg PO DAILY [facility] Last Admin: 01/31/21 09:23 Dose: 100 mg Documented by: Metformin HCl (Metformin 500 Mg Tab) 500 mg PO WITHBREAKFAST [facility] Last Admin: 01/30/21 08:45 Dose: 500 mg Documented by: Metoprolol Succinate (Metoprolol Succinate 25 Mg Tab.Er) 25 mg PO DAILY [facility] Last Admin: 01/31/21 09:23 Dose: 25 mg Documented by: Metoprolol Tartrate (Metoprolol Tartrate 5 Mg/5 Ml Sdv) 5 mg IVPUSH ONETIME ONE Stop: 01/29/21 22:29 Last Admin: 01/29/21 22:31 Dose: 5 mg Documented by: Metoprolol Tartrate (Metoprolol Tartrate 25 Mg Tab) 12.5 mg PO BID [facility] Stop: 01/30/21 21:01 Last Admin: 01/30/21 21:25 Dose: 12.5 mg Documented by: Ondansetron HCl (Ondansetron 4 Mg/2 Ml Sdv) 4 mg IV Q6H PRN PRN Reason: Nausea/Vomiting Potassium Chloride (Potassium Chloride 20 Meq Packet) 40 meq PO ONETIME ONE Stop: 01/30/21 01:38 Last Admin: 01/30/21 03:29 Dose: 40 meq Documented by: Sodium Chloride (Sodium Chloride 0.9% 10 Ml Syringe) 10 ml FLUSH ASDIRECTED PRN PRN Reason: Keep Vein Open Last Admin: 01/29/21 21:39 Dose: 10 ml Documented by: - Exam General: Reports: Alert, Oriented, Cooperative, No Acute Distress Lungs: Reports: Clear to Auscultation, Normal Respiratory Effort Cardiovascular: Reports: Regular Rate, Regular Rhythm. Denies: Murmurs GI/Abdominal Exam: Normal Bowel Sounds, Soft, Non-Tender, No Distention (Male) Exam: Deferred Rectal (Males) Exam: Deferred Extremities: No Pedal Edema, Normal Capillary Refill Skin: Reports: Warm, Dry, Intact
--- NOTE | 2021-02-03 09:30 | PCM.EKG ---
#1 Interpretation EKG Date: 01/30/21 Time: 06:21 Rhythm: NSR Rate (Beats/Min): 84 [place]: Normal P-Wave: Present QRS: Normal (Borderline conduction delay, QRS 114) ST-T: Normal QT: Normal Comparison: Change From Previous EKG EKG Interpretation Comments: NSR, Borderline intraventricular conduction delay, 114(>112 ms), Wandering baseline in V2(nonspecific) Improved from previous EKG that was sinus tachycardia, T wave flattening in inferior & lateral leads.
== END 2021-01-31 14:37 | disposition home or self-care (01) ==
LOC: FB.ED 21:11 → FB.MS 23:55
PROVIDERS: ADMIT Emergency Medicine; ATTEND Family Medicine
DX: I16.9 Hypertensive crisis, unspecified (principal); I51.4 Myocarditis, unspecified; R00.0 Tachycardia, unspecified; E78.00 Pure hypercholesterolemia, unspecified; I10 Essential (primary) hypertension; E66.9 Obesity, unspecified; E11.69 Type 2 diabetes mellitus with other specified complication; Z79.84 Long term (current) use of oral hypoglycemic drugs; Z79.899 Other long term (current) drug therapy; Z98.890 Other specified postprocedural states; Z20.822 Contact with and (suspected) exposure to COVID-19
CPT/HCPCS: 36415; 71045; 71275; 80048; 80053; 81001; 82550; 82947; 83735; 83880; 84443; 84484; 85025; 85379; 86140; 93005; 93306; 96372; 96374; 99285-25; A9270-GY; G0378; J1650; J3490; J7030; J7040; Q9967; U0002